=== PATIENT | female | born 1935 | race Caucasian/White ===

== ENCOUNTER 2017-01-04 07:41 | Day surgery (SDC) | payer MEDICARE, OTHER ==
[2016-12-28 11:14] LABS: APPEARANCE,URINE CLEAR; BILIRUBIN,URINE NEGATIVE (NEGATIVE); GLUCOSE, URINE NEGATIVE (NEGATIVE); KETONES,URINE NEGATIVE (NEGATIVE); LEUKOCYTE ESTERASE,URINE TRACE (NEGATIVE); NITRITE,URINE NEGATIVE (NEGATIVE); PROTEIN,URINE NEGATIVE (NEGATIVE); URINE SPECIFIC GRAVITY 1.006; UROBILINOGEN,URINE NEGATIVE mg/dL (<2.0)
[2016-12-28 11:16] LABS: HEMATOCRIT 35.8 % (36.0-47.0); HEMOGLOBIN 12.4 g/dL (12.0-15.5); HGB HCT DIFFERENCE 1.4; MEAN CORPUSCULAR HEMOGLOBIN 31.4 pg (27.0-33.4); MEAN CORPUSCULAR HGB CONC 34.5 g/dL (32.0-36.0); MEAN CORPUSCULAR VOLUME 91 fl (80-97); RED BLOOD COUNT 3.94 10^6/uL (3.72-5.28); RED CELL DISTRIBUTION WIDTH 14.4 % (11.5-14.0); WHITE BLOOD COUNT 5.5 10^3/uL (4.0-10.5)
--- NOTE | 2016-12-28 11:24 | RADIOLOGY REPORT (SQ) ---
EXAM DESCRIPTION: CHEST PA/LATERAL COMPLETED DATE/TIME: 12/28/2016 11:17 am REASON FOR STUDY: PRE OP COMPARISON: AP chest 05/29/2014, 06/15/2012 EXAM PARAMETERS: NUMBER OF VIEWS: two views TECHNIQUE: Digital Frontal and Lateral radiographic views of the chest acquired. RADIATION DOSE: NA LIMITATIONS: none FINDINGS: LUNGS AND PLEURA: No opacities, masses or pneumothorax. No pleural effusion. MEDIASTINUM AND HILAR STRUCTURES: No masses or contour abnormalities. HEART AND VASCULAR STRUCTURES: Heart normal size. No evidence for failure. BONES: No acute findings. HARDWARE: None in the chest. OTHER: No other significant finding. IMPRESSION: NO SIGNIFICANT RADIOGRAPHIC FINDING IN THE CHEST. TECHNICAL DOCUMENTATION: JOB ID: [id number] [employer]- All Rights Reserved
[2016-12-28 11:40] LABS: ANION GAP 13 (5-19); BLOOD UREA NITROGEN 19 mg/dL (7-20); CALCIUM 10.7 mg/dL (8.4-10.2); CARBON DIOXIDE 25 mmol/L (22-30); CHLORIDE 99 mmol/L (98-107); CREATININE RESULT 1.17 mg/dL (0.52-1.25); GLUCOSE 90 mg/dL (75-110); POTASSIUM 4.7 mmol/L (3.6-5.0); SODIUM 136.9 mmol/L (137-145)
--- NOTE | 2016-12-28 13:42 | EKG REPORT ---
SEVERITY:- OTHERWISE NORMAL ECG - SINUS BRADYCARDIA : Confirmed by: Roverto Kumar MD 28-Dec-2016 13:41:37
[~2017-01-04 07:41] MED LIST: BUPIVACAINE HCL 0.5%-EPI 1:200000 INJ/PF 30 ML VIAL ONE; CLINDAMYCIN 600 MG/D5W RTU 600 MG/50 ML RTUPB IV PRN; CLINDAMYCIN PHOSPHATE INJ 300 MG/2 ML SDV IV PRN; LACTATED RINGERS 1000 ML IV PRN; LIDOCAINE 0.5% INJ-PF (5 MG/ML) 50 ML SDV SUBCUT PRN
[2017-01-04 08:24] LABS: SODIUM 137.7 mmol/L (137-145)
[2017-01-04 08:27] LABS: PROTHROMBIN TIME 12.9 SEC (11.4-15.4)
[2017-01-04 08:28] LABS: PARTIAL THROMBOPLASTIN TIME 29.2 SEC (23.5-35.8)
[2017-01-04] MEDS ORDERED: FENTANYL CITRATE INJ/PF 100 MCG/2 ML AMPUL ONE (09:25)
[2017-01-04] MEDS ORDERED: MIDAZOLAM 2 MG/2 ML INJ ONE (09:25)
[2017-01-04] MEDS ORDERED: KETAMINE HCL INJ 500 MG/10 ML VIAL ONE (09:25)
[2017-01-04] MEDS ORDERED: PROPOFOL INJ 200 MG/20 ML VIAL IV ONE (09:25)
[2017-01-04] MEDS ORDERED: LIDOCAINE 2% INJ-PF (20 MG/ML) 10 ML AMPUL ONE (09:26)
[2017-01-04] MEDS ORDERED: MEPERIDINE HCL/PF INJ 25 MG/1 ML DISP.SYRIN IV PRN (10:04)
[2017-01-04] MEDS ORDERED: DIPHENHYDRAMINE HCL 50 MG/ML VIAL IV PRN (10:04)
[2017-01-04] MEDS ORDERED: FENTANYL CITRATE INJ/PF 100 MCG/2 ML AMPUL IV PRN ×3 (10:04)
[2017-01-04] MEDS ORDERED: PROMETHAZINE HCL INJ 25 MG/1 ML VIAL IV PRN ×2 (10:04)
[2017-01-04] MEDS ORDERED: ONDANSETRON HCL INJ/PF 4 MG/2 ML SDV IV PRN (10:04)
--- NOTE | 2017-01-04 10:45 | Operative Report ---
Operative Report DATE OF SURGERY: 01/04/17 PREOPERATIVE DIAGNOSIS: Prominent hardware status post open reduction internal fixation of a left ankle fracture OPERATION: Hardware removal, screw 2 SURGEON: SANIA COCHRAN FELT CUTTER: DIOR RIVERS ANESTHESIA: LMAC TISSUE REMOVED OR ALTERED: Screws 2 ESTIMATED BLOOD LOSS: Minimal PROCEDURE: The patient supine on the operating table left lower extremities prepped and draped sterile fashion. The skin overlying the previous lateral vision is insufflated with accommodation Marcaine, Xylocaine, and epinephrine. Subsequently 1 inch longitudinal incision was made over the palpable screw head. The underlying screws removed uneventfully. This is a syndesmosis screw there is a second syndesmosis screw in place and I elected to remove this at the same time to allow better distal tib-fib motion. A second screw was removed without any complications. The wound is irrigated. Is reapproximated with interrupted nylon. A sterile dressing was applied. The patient was returned to the PACU in satisfactory condition.
[2017-01-04] MEDS ORDERED: ONDANSETRON 4 MG TAB.RAPDIS SL PRN (11:45)
[2017-01-04] MEDS ORDERED: OXYCODONE HCL IR 5 MG TABLET PO PRN (11:45)
[2017-01-04] MEDS ORDERED: GLYCOPYRROLATE INJ 0.4 MG/2 ML VIAL ONE (12:05)
[2017-01-04 13:02] VITALS: BP 146/78
--- NOTE | 2017-01-04 16:05 | RADIOLOGY REPORT (SQ) ---
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 FLUOROSCOPY TIME: 0.1 minutes 2 images saved to PACS. TECHNIQUE: Intra-operative images acquired during surgical procedure to evaluate progress. NUMBER OF IMAGES: 2 LIMITATIONS: None. FINDINGS: Plate and screw fixation of fibular fracture. Screw fixation medial malleolar fracture. Alignment is anatomic. IMPRESSION: IMAGE(S) OBTAINED DURING PROCEDURE. COMMENT: Quality ID [id number]: Final reports for procedures using fluoroscopy that document radiation exp osure indices, or exposure time and number of fluorographic images (if radiation exposure indices are not available) Please consult full operative report of the attending physician for description of the procedure. TECHNICAL DOCUMENTATION: JOB ID: [id number] [employer]- All Rights Reserved
--- NOTE | 2017-01-04 16:05 | RADIOLOGY REPORT (SQ) ---
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 FLUOROSCOPY TIME: 0.1 minutes 2 images saved to PACS. TECHNIQUE: Intra-operative images acquired during surgical procedure to evaluate progress. NUMBER OF IMAGES: 2 LIMITATIONS: None. FINDINGS: Plate and screw fixation of fibular fracture. Screw fixation medial malleolar fracture. Alignment is anatomic. IMPRESSION: IMAGE(S) OBTAINED DURING PROCEDURE. COMMENT: Quality ID [id number]: Final reports for procedures using fluoroscopy that document radiation exp osure indices, or exposure time and number of fluorographic images (if radiation exposure indices are not available) Please consult full operative report of the attending physician for description of the procedure. TECHNICAL DOCUMENTATION: JOB ID: [id number] [employer]- All Rights Reserved
== END 2017-01-04 13:00 | disposition home or self-care (01) ==
LOC: OROUT 07:41
PROVIDERS: ATTEND Orthopaedic Surgery
PROC: 0SPG04Z Removal of Internal Fixation Device from Left Ankle Joint, Open Approach (ICD-10-PCS; principal; 2017-01-04 09:30)
DX: Z47.2 Encounter for removal of internal fixation device (principal); S82.842S Displaced bimalleolar fracture of left lower leg, sequela; X58.XXXS Exposure to other specified factors, sequela; I10 Essential (primary) hypertension; Z79.899 Other long term (current) drug therapy; Z79.01 Long term (current) use of anticoagulants; I25.2 Old myocardial infarction; Z88.0 Allergy status to penicillin; Z88.5 Allergy status to narcotic agent; Z79.02 Long term (current) use of antithrombotics/antiplatelets
CPT/HCPCS: 93005; 36415 ×2; 84132; 84295; 85027; 85610; 85730; 80048; 81001; 73600; 71020; 93010; 20680; J2250; J3490 ×2; J3010; J2704; 01480

== ENCOUNTER 2017-04-07 05:52 | Emergency (ER) | payer MEDICARE, OTHER ==
[2017-04-07] MEDS ORDERED: NORMAL SALINE 1000 ML 1,000 ML IV ONE (06:20)
[2017-04-07 06:35] LABS: ABSOLUTE LYMPHOCYTES (AUTO) 0.9 10^3/uL (0.5-4.7); ABSOLUTE MONOCYTES (AUTO) 0.9 10^3/uL (0.1-1.4); ABSOLUTE NEUT (AUTO) 10.3 10^3/uL (1.7-8.2); BASOPHILS % (AUTO) 0.2 % (0-2); EOSINOPHILS % (AUTO) 0.3 % (0-6); HEMATOCRIT 38.1 % (36.0-47.0); HEMOGLOBIN 12.9 g/dL (12.0-15.5); HGB HCT DIFFERENCE 0.6; LYMPHOCYTES % (AUTO) 7.5 % (13-45); MEAN CORPUSCULAR HEMOGLOBIN 30.7 pg (27.0-33.4); MEAN CORPUSCULAR HGB CONC 33.8 g/dL (32.0-36.0); MEAN CORPUSCULAR VOLUME 91 fl (80-97); MONOCYTES % (AUTO) 7.5 % (3-13); RED BLOOD COUNT 4.19 10^6/uL (3.72-5.28); RED CELL DISTRIBUTION WIDTH 14.1 % (11.5-14.0); SEGMENTED NEUTROPHILS % (AUTO) 84.5 % (42-78); WHITE BLOOD COUNT 12.2 10^3/uL (4.0-10.5)
--- NOTE | 2017-04-07 06:40 | ER Document Report ---
ED General - General Chief Complaint: Rectal Bleeding Stated Complaint: POSSIBLE RECTAL BLEEDING Time Seen by Provider: 04/07/17 06:06 TRAVEL OUTSIDE OF THE [place] IN LAST 30 DAYS: No - HPI Patient complains to provider of: Syncope GI bleed Notes: Patient coming in for evaluation of syncope in the GI bleed. Patient states earlier tonight she started having bright red blood per rectum around 2:00. Patient states she is currently on Plavix for a cardiac stent. Patient states she has had multiple bouts of watery stool with bright red blood and blood clots. Patient states normally has a little bit of abdominal pain before the stool. Patient states that when she was trying to go to the bathroom tonight she did have a syncopal episode unknown about any other trauma. Patient otherwise not, have any other complaints. Patient states past medical is positive for hypertension creatinine disease. States colonoscopy approximately 3 years ago with only hemorrhoids found. Patient otherwise is resting comfortably upon my evaluation. Patient denies any symptoms prior to syncopal episode denies chest pain abdominal pain nausea vomiting fevers chills diarrhea. Denies any recent antibiotic use. - Related Data Allergies/Adverse Reactions: Penicillins Allergy (Severe, Verified 12/28/16 09:54) codeine [Codeine] Allergy (Mild, Verified 12/28/16 09:54) Nausea Past Medical History - Social History Smoking Status: Never Smoker Chew tobacco use (# tins/day): No Frequency of alcohol use: None Drug Abuse: None Family History: Other - Negative for premature coronary artery disease Patient has suicidal ideation: No Patient has homicidal ideation: No - Past Medical History Cardiac Medical History: Reports: Hx Coronary Artery Disease, Hx Heart Attack, Hx Hypercholesterolemia, Hx Hypertension Pulmonary Medical History: Denies: Hx Asthma, Hx Bronchitis, Hx COPD, Hx Pneumonia Neurological Medical History: Denies: Hx Cerebrovascular Accident, Hx Seizures Renal/ Medical History: Denies: Hx Peritoneal Dialysis Malignancy Medical History: Reports: Hx Skin Cancer GI Medical History: Reports: Hx Gastroesophageal Reflux Disease, Hx Hiatal Hernia Musculoskeltal Medical History: Reports Hx Arthritis Past Surgical History: Reports: Hx Breast Surgery - lumps removed, Hx Cardiac Catheterization, Hx Coronary Stent, Hx Vascular Surgery - stint placement. Denies: Hx Pacemaker - Immunizations Immunizations up to date: Yes Hx Diphtheria, Pertussis, Tetanus Vaccination: Yes Hx Pneumococcal Vaccination: 05/15/14 Review of Systems - Review of Systems Constitutional: No symptoms reported EENT: No symptoms reported Cardiovascular: Syncope Respiratory: No symptoms reported Gastrointestinal: Abdominal pain, Rectal bleeding Genitourinary: No symptoms reported Female Genitourinary: No symptoms reported Musculoskeletal: No symptoms reported Skin: No symptoms reported Hematologic/Lymphatic: No symptoms reported Neurological/Psychological: No symptoms reported -: Yes All other systems reviewed and negative Physical Exam - Vital signs Vitals: Resp Pulse Ox 14 97 04/07/17 06:03 04/07/17 06:03 Interpretation: Normal - General General appearance: Appears well, Alert - HEENT Head: Normocephalic, Atraumatic Eyes: Normal Pupils: PERRL - Respiratory Respiratory status: No respiratory distress Chest status: Nontender Breath sounds: Normal Chest palpation: Normal - Cardiovascular Rhythm: Regular Heart sounds: Normal auscultation Murmur: No - Abdominal Inspection: Normal Distension: No distension Bowel sounds: Normal Tenderness: Nontender Organomegaly: No organomegaly - Rectal Stool: Heme positive, Other - Bright red blood with small clots Hemorrhoids: External - Back Back: Normal, Nontender - Extremities General upper extremity: Normal inspection, Nontender, Normal color, Normal ROM , Normal temperature General lower extremity: Normal inspection, Nontender, Normal color, Normal ROM , Normal temperature, Normal weight bearing. No: Aleah's sign - Neurological Neuro grossly intact: Yes Cognition: Normal Orientation: AAOx4 Carrie Coma Scale Eye Opening: Spontaneous [place] Coma Scale Verbal: Oriented [place] Coma Scale Motor: Obeys Commands [place] Coma Scale Total: 15 Speech: Normal Motor strength normal: LUE, RUE, LLE, RLE Sensory: Normal - Psychological Associated symptoms: Normal affect, Normal mood - Skin Skin Temperature: Warm Skin Moisture: Dry Skin Color: Normal Course - Re-evaluation Re-evalutation: 04/07/17 06:39 Patient coming in after having a syncopal episode after multiple bouts of bright red blood. Will check CBC also obtain chest x-ray CT of the head and CT of the abdomen. Otherwise patient right now has normal vital signs. We will continue to monitor. 04/07/17 09:26 Patient requested to be transferred to the [place] or the . I did discuss with the however was informed that they would not be able to accept the patient has had a lack of GI specialty. Discussed with Deniz Gaona discussed with hospitalist Dr. Mccann patient was gladly accepted. Will continue antibiotics IV fluids patient currently waiting for transfer. 04/07/17 10:59 Patient was to be stable for discharge at this time. - Vital Signs Vital signs: Temp Pulse Resp BP Pulse Ox 98.7 F 63 16 167/59 H 98 04/07/17 06:30 04/07/17 08:26 04/07/17 09:01 04/07/17 09:01 04/07/17 08:26 - Laboratory Result Diagrams: 04/07/17 10:09 04/07/17 06:10 Laboratory results interpreted by me: 04/07/17 04/07/17 04/07/17 06:10 06:10 10:09 WBC 12.2 H 12.3 H RDW 14.1 H 14.3 H Seg Neutrophils % 84.5 H Lymphocytes % 7.5 L Absolute Neutrophils 10.3 H Sodium 135.7 L Carbon Dioxide 21 L BUN 29 H Creatinine 1.53 H Est GFR ( Amer) 39 L Est GFR (Non-Af Amer) 32 L Glucose 126 H Discharge - Discharge Clinical Impression: Colitis GI bleed Qualifiers: GI bleed type/associated pathology: unspecified gastrointestinal hemorrhage type Qualified Code(s): K92.2 - Gastrointestinal hemorrhage, unspecified Syncope Qualifiers: Syncope type: unspecified Qualified Code(s): R55 - Syncope and collapse Condition: Good Disposition: [facility]
[2017-04-07 06:43] LABS: PROTHROMBIN TIME 13.1 SEC (11.4-15.4)
[2017-04-07 06:47] LABS: ALANINE AMINOTRANSFERASE 33 U/L (9-52); ALBUMIN 4.2 g/dL (3.5-5.0); ALKALINE PHOSPHATASE 93 U/L (38-126); ANION GAP 15 (5-19); ASPARTATE AMINO TRANSFERASE 24 U/L (14-36); BILIRUBIN,DIRECT 0.3 mg/dL (0.0-0.4); BLOOD UREA NITROGEN 29 mg/dL (7-20); CALCIUM 9.7 mg/dL (8.4-10.2); CARBON DIOXIDE 21 mmol/L (22-30); CHLORIDE 100 mmol/L (98-107); CREATINE KINASE 93 U/L (30-135); CREATININE RESULT 1.53 mg/dL (0.52-1.25); GLUCOSE 126 mg/dL (75-110); SODIUM 135.7 mmol/L (137-145); TOTAL PROTEIN 6.6 g/dL (6.3-8.2)
--- NOTE | 2017-04-07 06:48 | RADIOLOGY REPORT (SQ) ---
EXAM DESCRIPTION: CHEST SINGLE VIEW COMPLETED DATE/TIME: 04/07/2017 6:34 am REASON FOR STUDY: bleeding COMPARISON: 8.16.17 EXAM PARAMETERS: NUMBER OF VIEWS: One view. TECHNIQUE: Single frontal radiographic view of the chest acquired. RADIATION DOSE: NA LIMITATIONS: None. FINDINGS: LUNGS AND PLEURA: No opacities, masses or pneumothorax. No pleural effusion. MEDIASTINUM AND HILAR STRUCTURES: No masses. Contour normal. HEART AND VASCULAR STRUCTURES: Heart normal in size. Normal vasculature. BONES: No acute findings. HARDWARE: None in the chest. OTHER: No other significant finding. IMPRESSION: NO ACUTE RADIOGRAPHIC FINDING IN THE CHEST. TECHNICAL DOCUMENTATION: JOB ID: [id number] [employer]- All Rights Reserved
[2017-04-07] MEDS ORDERED: ONDANSETRON HCL INJ/PF 4 MG/2 ML SDV IV ONE (07:14)
[2017-04-07] MEDS ORDERED: PANTOPRAZOLE SODIUM 40 MG VIAL IV ONE (07:38)
--- NOTE | 2017-04-07 08:19 | RADIOLOGY REPORT (SQ) ---
EXAM DESCRIPTION: CT HEAD WITHOUT COMPLETED DATE/TIME: 04/07/2017 8:08 am REASON FOR STUDY: syncope gi bleed COMPARISON: March 2011 TECHNIQUE: Axial images acquired through the brain without intravenous contrast. Images reviewed wi th bone, brain and subdural windows. Images stored on PACS. All CT scanners at this facility use dose modulation, iterative reconstruction, and/or weight based d osing when appropriate to reduce radiation dose to as low as reasonably achievable (ALARA). [facility]: Dose Right [facility]: CareDose [facility]: Dose Right [facility]: Teradose 4D [facility]: Smart FigCard RADIATION DOSE: CT Rad equipment meets quality standard of care and radiation dose reduction techniq ues were employed. CTDIvol: 64.6 mGy. DLP: 1034 mGy-cm.mGy. LIMITATIONS: None. FINDINGS: VENTRICLES: Prominent. CEREBRUM: No masses. No hemorrhage. No midline shift. Areas of low density in the white matter mos t likely due to chronic micro-vascular ischemic change. No evidence for acute infarction. CEREBELLUM: No masses. No hemorrhage. No alteration of density. No evidence for acute infarction. EXTRAAXIAL SPACES: Age-related involutional change. No fluid collections. No masses. ORBITS AND GLOBE: No intra- or extraconal masses. Normal contour of globe without masses. CALVARIUM: No fracture. PARANASAL SINUSES: No fluid or mucosal thickening. SOFT TISSUES: No mass or hematoma. OTHER: No other significant finding. IMPRESSION: CHRONIC CHANGES OF ATROPHY AND MICROVASCULAR ISCHEMIA. NO ACUTE PROCESS. EVIDENCE OF ACUTE STROKE: NO. TECHNICAL DOCUMENTATION: JOB ID: [id number] Quality ID # [id number]: Final reports with documentation of one or more dose reduction techniques (e.g., Au tomated exposure control, adjustment of the mA and/or kV according to patient size, use of iterative reconstruction technique) 2010 [employer]- All Rights Reserved
--- NOTE | 2017-04-07 08:26 | RADIOLOGY REPORT (SQ) ---
EXAM DESCRIPTION: CT ABD/PELVIS WITH IV ONLY COMPLETED DATE/TIME: 04/07/2017 8:08 am REASON FOR STUDY: gi bleed lower abd pain COMPARISON: None. TECHNIQUE: CT scan of the abdomen and pelvis performed using helical scanning technique with dynamic intravenous contrast injection. No oral contrast. Images reviewed with lung, soft tissue, and bone windows. Reconstructed coronal and sagittal MPR images reviewed. Delayed images for evaluation of the urinary system also acquired. All images stored on PACS. All CT scanners at this facility use dose modulation, iterative reconstruction, and/or weight based d osing when appropriate to reduce radiation dose to as low as reasonably achievable (ALARA). [facility]: Dose Right [facility]: CareDose [facility]: Dose Right [facility]: Teradose 4D [facility]: [employer] CONTRAST TYPE AND DOSE: contrast/concentration: Isovue 300.00 mg/ml; Total Contrast Delivered: 81.0 ml; Total Saline Delivered: 68.0 ml RENAL FUNCTION: Creatinine 1.5 RADIATION DOSE: CT Rad equipment meets quality standard of care and radiation dose reduction techniq ues were employed. CTDIvol: 9.6 - 14.0 mGy. DLP: 1183 mGy-cm.. LIMITATIONS: None. FINDINGS: LOWER CHEST: No significant findings. No nodules or infiltrates. LIVER: Normal size. No masses. No dilated ducts. SPLEEN: Normal size. No focal lesions. PANCREAS: No masses. No significant calcifications. No adjacent inflammation or peripancreatic fluid collections. Pancreatic duct not dilated. GALLBLADDER: No identified stones by CT criteria. No inflammatory changes to suggest cholecystitis. ADRENAL GLANDS: No significant masses or asymmetry. RIGHT KIDNEY AND URETER: No solid masses. No significant calcifications. No hydronephrosis or hyd roureter. LEFT KIDNEY AND URETER: No solid masses. No significant calcifications. No hydronephrosis or hydr oureter. 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 No dissection. Renal arteries, SMA, celiac without stenosis. RETROPERITONEUM: No retroperitoneal adenopathy, hemorrhage or masses. BOWEL AND PERITONEAL CAVITY: There is diffuse thickening of the castellano of the colon extending from the level of the hepatic flexure to the level of the rectum consistent with a colitis. APPENDIX: Normal. PELVIS: No mass. No free fluid. Normal bladder. ABDOMINAL WALL: No masses. No hernias. BONES: No significant or acute findings. OTHER: No other significant finding. IMPRESSION: Diffuse thickening of the castellano of the colon extending from the level of the hepatic fle xure to the level of the rectum consistent with a colitis. Other findings as noted above TECHNICAL DOCUMENTATION: JOB ID: [id number] Quality ID # [id number]: Final reports with documentation of one or more dose reduction techniques (e.g., Au tomated exposure control, adjustment of the mA and/or kV according to patient size, use of iterative reconstruction technique) 2010 [employer]- All Rights Reserved
[2017-04-07] MEDS ORDERED: METRONIDAZOLE 500 MG/NS RTU 100 ML IV ONE (08:34)
[2017-04-07] MEDS ORDERED: CIPROFLOXACIN 400 MG/D5W RTU 400 MG/200 ML RTUPB IV SCH (09:00)
[2017-04-07 10:20] LABS: HEMATOCRIT 38.7 % (36.0-47.0); HEMOGLOBIN 13.1 g/dL (12.0-15.5); HGB HCT DIFFERENCE 0.6; MEAN CORPUSCULAR HEMOGLOBIN 30.4 pg (27.0-33.4); MEAN CORPUSCULAR HGB CONC 33.9 g/dL (32.0-36.0); MEAN CORPUSCULAR VOLUME 90 fl (80-97); RED BLOOD COUNT 4.31 10^6/uL (3.72-5.28); RED CELL DISTRIBUTION WIDTH 14.3 % (11.5-14.0); WHITE BLOOD COUNT 12.3 10^3/uL (4.0-10.5)
[2017-04-07 11:32] VITALS: BP 178/77
--- NOTE | 2017-04-07 14:40 | EKG REPORT ---
SEVERITY:- BORDERLINE ECG - SINUS RHYTHM BORDERLINE T ABNORMALITIES, ANT-LAT LEADS : Confirmed by: Betsy Fried MD 07-Apr-2017 14:39:19
== END 2017-04-07 11:10 | disposition short-term general hospital (02) ==
LOC: ER 05:52
DX: K92.2 Gastrointestinal hemorrhage, unspecified (principal); K52.9 Noninfective gastroenteritis and colitis, unspecified; R55 Syncope and collapse; Z79.02 Long term (current) use of antithrombotics/antiplatelets
CPT/HCPCS: 93005; 99285; 96361; 96375; 96365; 96368; 86900; 86901; 36415; 87040; 87045; 87205; 86850; 82550; 85025; 85027; 85610; 85730; 82272; 80053; 84484; 87493; 71010; 70450; 74177; 93010; C9113; J2405; J7030; J0744; S0164

== ENCOUNTER → 2017-07-17 | Outpatient (CLI) | payer MEDICARE, OTHER ==
[2017-07-17 15:03] LABS: ANION GAP 10 (5-19); BLOOD UREA NITROGEN 24 mg/dL (7-20); CARBON DIOXIDE 25 mmol/L (22-30); CHLORIDE 103 mmol/L (98-107); GLUCOSE 137 mg/dL (75-110); POTASSIUM 4.6 mmol/L (3.6-5.0)
[2017-07-20 12:38] LABS: CREATININE URINE 77.3 mg/dL (Not Estab.); MICROALBUMIN URINE 3.8 ug/mL (Not Estab.)
== END ==
LOC: OD 14:11
PROVIDERS: ATTEND Internal Medicine Nephrology
DX: I12.9 Hypertensive chronic kidney disease with stage 1 through stage 4 chronic kidney disease, or unspecified chronic kidney disease (principal); N18.3 Chronic kidney disease, stage 3 (moderate)
CPT/HCPCS: 36415; 80048; 82043; 82570

== ENCOUNTER → 2017-11-21 | Outpatient (CLI) | payer MEDICARE, OTHER ==
[2017-11-21 10:37] LABS: ABSOLUTE EOSINOPHILS # (AUTO) 0.2 10^3/uL (0.0-0.6); ABSOLUTE LYMPHOCYTES (AUTO) 1.4 10^3/uL (0.5-4.7); ABSOLUTE MONOCYTES (AUTO) 0.6 10^3/uL (0.1-1.4); ABSOLUTE NEUT (AUTO) 2.7 10^3/uL (1.7-8.2); BASOPHILS % (AUTO) 0.7 % (0-2); EOSINOPHILS % (AUTO) 4.8 % (0-6); HEMATOCRIT 34.5 % (36.0-47.0); HEMOGLOBIN 12.3 g/dL (12.0-15.5); LYMPHOCYTES % (AUTO) 27.5 % (13-45); MEAN CORPUSCULAR HEMOGLOBIN 32.1 pg (27.0-33.4); MEAN CORPUSCULAR HGB CONC 35.5 g/dL (32.0-36.0); MEAN CORPUSCULAR VOLUME 90 fl (80-97); MONOCYTES % (AUTO) 11.4 % (3-13); PLATELET COUNT 247 10^3/uL (150-450); RED BLOOD COUNT 3.83 10^6/uL (3.72-5.28); RED CELL DISTRIBUTION WIDTH 13.4 % (11.5-14.0); SEGMENTED NEUTROPHILS % (AUTO) 55.6 % (42-78); TOTAL CELLS COUNTED % (AUTO) 100 %; WHITE BLOOD COUNT 4.9 10^3/uL (4.0-10.5)
[2017-11-21 10:48] LABS: APPEARANCE,URINE CLEAR; BILIRUBIN,URINE NEGATIVE (NEGATIVE); COLOR,URINE YELLOW; GLUCOSE, URINE NEGATIVE (NEGATIVE); KETONES,URINE NEGATIVE (NEGATIVE); LEUKOCYTE ESTERASE,URINE MODERATE (NEGATIVE); NITRITE,URINE NEGATIVE (NEGATIVE); PROTEIN,URINE NEGATIVE (NEGATIVE); UROBILINOGEN,URINE NEGATIVE mg/dL (<2.0)
[2017-11-21 11:06] LABS: ANION GAP 10 (5-19); BLOOD UREA NITROGEN 17 mg/dL (7-20); CALCIUM 9.5 mg/dL (8.4-10.2); CARBON DIOXIDE 27 mmol/L (22-30); CHLORIDE 101 mmol/L (98-107); GLUCOSE 87 mg/dL (75-110); POTASSIUM 4.6 mmol/L (3.6-5.0); SODIUM 137.7 mmol/L (137-145)
[2017-11-22 12:39] LABS: CREATININE URINE 67.5 mg/dL (Not Estab.); MICROALBUMIN URINE 3.2 ug/mL (Not Estab.)
== END ==
LOC: OD 09:57
PROVIDERS: ATTEND Internal Medicine Nephrology
DX: I12.9 Hypertensive chronic kidney disease with stage 1 through stage 4 chronic kidney disease, or unspecified chronic kidney disease (principal); N18.3 Chronic kidney disease, stage 3 (moderate)
CPT/HCPCS: 36415; 80048; 81001; 82040; 82043; 82306; 82570; 83970; 84100; 85025

== ENCOUNTER → 2018-06-07 | Outpatient (CLI) | payer MEDICARE, OTHER ==
[2018-06-07 10:53] LABS: APPEARANCE,URINE SLIGHTLY-CLOUDY; BILIRUBIN,URINE NEGATIVE (NEGATIVE); COLOR,URINE YELLOW; GLUCOSE, URINE NEGATIVE (NEGATIVE); KETONES,URINE NEGATIVE (NEGATIVE); LEUKOCYTE ESTERASE,URINE MODERATE (NEGATIVE); NITRITE,URINE NEGATIVE (NEGATIVE); PROTEIN,URINE NEGATIVE (NEGATIVE); URINE SPECIFIC GRAVITY 1.011; UROBILINOGEN,URINE NEGATIVE mg/dL (<2.0)
[2018-06-07 11:27] LABS: ANION GAP 9 (5-19); BLOOD UREA NITROGEN 22 mg/dL (7-20); CALCIUM 10.1 mg/dL (8.4-10.2); CARBON DIOXIDE 27 mmol/L (22-30); CHLORIDE 101 mmol/L (98-107); GLUCOSE 94 mg/dL (75-110); SODIUM 136.8 mmol/L (137-145)
== END ==
LOC: OD 09:28
PROVIDERS: ATTEND Internal Medicine Nephrology
DX: I12.9 Hypertensive chronic kidney disease with stage 1 through stage 4 chronic kidney disease, or unspecified chronic kidney disease (principal); N18.3 Chronic kidney disease, stage 3 (moderate)
CPT/HCPCS: 36415; 80048; 81001

== ENCOUNTER → 2018-11-20 | Outpatient (CLI) | payer MEDICARE, OTHER ==
[2018-11-20 11:21] LABS: ABSOLUTE EOSINOPHILS # (AUTO) 0.2 10^3/uL (0.0-0.6); ABSOLUTE LYMPHOCYTES (AUTO) 1.5 10^3/uL (0.5-4.7); ABSOLUTE MONOCYTES (AUTO) 0.6 10^3/uL (0.1-1.4); ABSOLUTE NEUT (AUTO) 2.9 10^3/uL (1.7-8.2); BASOPHILS % (AUTO) 0.7 % (0-2); EOSINOPHILS % (AUTO) 3.6 % (0-6); HEMATOCRIT 34.9 % (36.0-47.0); LYMPHOCYTES % (AUTO) 28.5 % (13-45); MEAN CORPUSCULAR HEMOGLOBIN 30.9 pg (27.0-33.4); MEAN CORPUSCULAR HGB CONC 34.4 g/dL (32.0-36.0); MEAN CORPUSCULAR VOLUME 90 fl (80-97); MONOCYTES % (AUTO) 12.3 % (3-13); PLATELET COUNT 275 10^3/uL (150-450); RED BLOOD COUNT 3.88 10^6/uL (3.72-5.28); RED CELL DISTRIBUTION WIDTH 13.6 % (11.5-14.0); SEGMENTED NEUTROPHILS % (AUTO) 54.9 % (42-78); TOTAL CELLS COUNTED % (AUTO) 100 %; WHITE BLOOD COUNT 5.2 10^3/uL (4.0-10.5)
[2018-11-20 11:42] LABS: ALBUMIN 4.1 g/dL (3.5-5.0); ANION GAP 9 (5-19); BLOOD UREA NITROGEN 20 mg/dL (7-20); CALCIUM 9.5 mg/dL (8.4-10.2); CARBON DIOXIDE 27 mmol/L (22-30); CHLORIDE 99 mmol/L (98-107); GLUCOSE 89 mg/dL (75-110); PHOSPHORUS 4.3 mg/dL (2.5-4.5); POTASSIUM 4.9 mmol/L (3.6-5.0); SODIUM 134.6 mmol/L (137-145)
[2018-11-20 12:09] LABS: APPEARANCE,URINE CLEAR; BILIRUBIN,URINE NEGATIVE (NEGATIVE); COLOR,URINE STRAW; GLUCOSE, URINE NEGATIVE (NEGATIVE); KETONES,URINE NEGATIVE (NEGATIVE); LEUKOCYTE ESTERASE,URINE LARGE (NEGATIVE); NITRITE,URINE NEGATIVE (NEGATIVE); PROTEIN,URINE NEGATIVE (NEGATIVE); URINE SPECIFIC GRAVITY 1.008; UROBILINOGEN,URINE NEGATIVE mg/dL (<2.0)
[2018-11-21 10:37] LABS: CREATININE URINE 46.5 mg/dL (Not Estab.); MICROALBUMIN URINE <3.0 ug/mL (Not Estab.)
== END ==
LOC: OD 10:31
PROVIDERS: ATTEND Internal Medicine Nephrology
DX: I12.9 Hypertensive chronic kidney disease with stage 1 through stage 4 chronic kidney disease, or unspecified chronic kidney disease (principal); N18.3 Chronic kidney disease, stage 3 (moderate)
CPT/HCPCS: 36415; 80069; 81001; 82043; 82306; 82570; 83970; 85025

== ENCOUNTER → 2020-03-26 | Outpatient (CLI) | payer MEDICARE, OTHER ==
[2020-03-26 08:47] LABS: APPEARANCE,URINE CLEAR; BILIRUBIN,URINE NEGATIVE (NEGATIVE); COLOR,URINE STRAW; GLUCOSE, URINE NEGATIVE (NEGATIVE); KETONES,URINE NEGATIVE (NEGATIVE); LEUKOCYTE ESTERASE,URINE NEGATIVE (NEGATIVE); NITRITE,URINE NEGATIVE (NEGATIVE); PROTEIN,URINE NEGATIVE (NEGATIVE); URINE SPECIFIC GRAVITY 1.004; UROBILINOGEN,URINE NEGATIVE mg/dL (<2.0)
[2020-03-26 08:53] LABS: ALBUMIN 4.1 g/dL (3.5-5.0); ANION GAP 10 (5-19); BLOOD UREA NITROGEN 15 mg/dL (7-20); CALCIUM 10.1 mg/dL (8.4-10.2); CARBON DIOXIDE 24 mmol/L (22-30); CHLORIDE 102 mmol/L (98-107); GLUCOSE 95 mg/dL (75-110); PHOSPHORUS 3.4 mg/dL (2.5-4.5)
[2020-03-26 09:06] LABS: ABSOLUTE EOSINOPHILS # (AUTO) 0.2 10^3/uL (0.0-0.6); ABSOLUTE LYMPHOCYTES (AUTO) 1.6 10^3/uL (0.5-4.7); ABSOLUTE MONOCYTES (AUTO) 0.5 10^3/uL (0.1-1.4); ABSOLUTE NEUT (AUTO) 2.4 10^3/uL (1.7-8.2); BASOPHILS % (AUTO) 0.6 % (0-2); EOSINOPHILS % (AUTO) 3.9 % (0-6); HEMATOCRIT 33.9 % (36.0-47.0); HEMOGLOBIN 11.9 g/dL (12.0-15.5); MEAN CORPUSCULAR VOLUME 91 fl (80-97); MONOCYTES % (AUTO) 11.5 % (3-13); PLATELET COUNT 266 10^3/uL (150-450); RED BLOOD COUNT 3.71 10^6/uL (3.72-5.28); RED CELL DISTRIBUTION WIDTH 13.8 % (11.5-14.0); TOTAL CELLS COUNTED % (AUTO) 100 %; WHITE BLOOD COUNT 4.8 10^3/uL (4.0-10.5)
[2020-03-27 10:37] LABS: CREATININE URINE 23.5 mg/dL (Not Estab.)
[2020-03-27 10:39] LABS: MICROALBUMIN URINE <3.0 ug/mL (Not Estab.)
--- OUTSIDE RECORDS SUMMARY | 2020-03-27 15:00 | XMS REPORT ---
:1935 Author Organization [facility] Address [facility] [place] [address] [place] [id number] Care Team Providers Name Role Phone Esteban River MD Attending Clinician Unavailable Simone Velasquez MD Attending Clinician Unavailable Allergies, Adverse Reactions, Alerts Allergy Name Allergy Status Severity Reaction(s) Onset Inactive Treat ing Comments Type Date Date Clinician Codeine Allergy to Active substance Penicillins Allergy to Active substance Codeine Codeine Active Derivatives Derivatives Penicillins Penicillins Active Medications Ordered Filled Start Stop Current Ordering Indication Dosage Frequency Signature Comments Components Medication Medication Date Date Medication? Clinician (SIG) Name Name Mucinex DM 2019-0 Yes Mucinex DM Maximum 1-24 Maximum Strength 00:00: Strength 60-1200 MG 00 60-1200 MG Oral Tablet Oral Extended Tablet Release 12 Extended Hour Release 12 Hour Quantity: 28 Refills: 0 Start : 0Active Doxycycline 2019-0 Yes Doxycyclin Hyclate 100 1-24 e Hyclate MG Oral 00:00: 100 MG Tablet 00 Oral Tablet Quantity: 14 Refills: 0 Start : 0Active AYR Saline 2019-0 Yes AYR Saline Nasal Rinse 1-24 Nasal 1.57 GM 00:00: Rinse 1.57 Nasal 00 GM Nasal Packet Packet Quantity: 50 Refills: 0 Start : 0Active Telmisartan 2019-0 Yes Telmisarta 80 MG Oral 1-24 n 80 MG Tablet 00:00: Oral 00 Tablet Quantity: 90 Refills: 0 Start : 0Active Aspirin Low 2020-0 Yes Aspirin Dose 81 MG 1-24 Low Dose Oral Tablet 00:00: 81 MG Oral Delayed 00 Tablet Release Delayed Release Quantity: 90 Refills: 0 Start : 0Active Proctozone- 2019-0 Yes Proctozone HC 2.5 % 1-24 -HC 2.5 % CREA 00:00: CREA 00 Quantity: 30 Refills: 0 Start : 0Active Isosorbide 2020- Yes Simone .5 QD Isosorbide Mononitrate 1-08 Ron Mononiellent ER 30 MG 00:00: MD shelby ER 30 MG Oral Tablet 00 Oral Extended Tablet Release 24 Extended Hour Release 24 Hour TAKE 0.5 TABLET DAILY Quantity: 23 Refills: 5 Simone Velasquez MD Start : 22-May-2019 Active FeroSul 325 2018- Yes FeroSul (65 Fe) MG 2-19 325 (65 Oral Tablet 00:00: Fe) MG 00 Oral Tablet Quantity: 100 Refills: 0 Start : 9Active Cetirizine 2018-05 Yes Cetirizine HCl - 10 MG 0-16 HCl - 10 Oral Tablet 00:00: MG Oral 00 Tablet Quantity: 90 Refills: 0 Start : 9Active Naproxen Yes Naproxen 375 MG Oral 9-18 375 MG Tablet 00:00: Oral 00 Tablet Quantity: 60 Refills: 0 Start : 9Active Fish Oil Yes Fish Oil 1000 MG 8-30 1000 MG Oral 00:00: Oral Capsule 00 Capsule Quantity: 180 Refills: 0 Start : 9Active Nitroglycer Yes Nitroglyce in 0.4 8-30 rin 0.4 MG/SPRAY 00:00: MG/SPRAY Translingua 00 Translingu l Solution al Solution Quantity: 4 Refills: 0 Start : 9Active Meloxicam Yes Meloxicam 7.5 MG Oral 8-15 7.5 MG Tablet 00:00: Oral 00 Tablet Quantity: 30 Refills: 0 Start : 9Active Ranexa 500 Yes Ranexa 500 MG Oral 6-14 MG Oral Tablet 00:00: Tablet Extended 00 Extended Release 12 Release 12 Hour Hour Quantity: 180 Refills: 0 Start : 9Active Carvedilol Yes Carvedilol 6.25 MG 3-20 6.25 MG Oral Tablet 00:00: Oral 00 Tablet Quantity: 180 Refills: 0 Start : 9Active Vitamin 2019- Yes Vitamin B-12 1000 3-20 B-12 1000 MCG Oral 00:00: MCG Oral Tablet 00 Tablet Quantity: 90 Refills: 0 Start : 9Active Multi-Vitam 0 Yes Multi-Nicky ins TABS 3-20 mins TABS 00:00: Quantity: 00 100 Refills: 0 Start : 9Active NIFEdipine 0 Yes NIFEdipine ER 30 MG 3-20 ER 30 MG Oral Tablet 00:00: Oral Extended 00 Tablet Release 24 Extended Hour Release 24 Hour Quantity: 90 Refills: 0 Start : 9Active Acetaminoph Yes Acetaminop en CAPS hen CAPS 1 tab po every day Refills: 0 Active Zolpidem Yes Zolpidem Tartrate 10 Tartrate MG Oral 10 MG Oral Tablet Tablet TAKE 1/2 to ONE TABLET, NEEDED, AT BEDTIME. Quantity: 30 Refills: 4 Active Melatonin 3 Yes Melatonin MG Oral 3 MG Oral Tablet Tablet TAKE DIRECTED. Refills: 0 Active Calcium Yes Calcium 500/D 500/D 500-200 500-200 MG-UNIT MG-UNIT Oral Tablet Oral Tablet 1 tab po twice a day Refills: 0 Active MiraLax 17 Yes MiraLax 17 GM/SCOOP GM/SCOOP Oral Powder Oral Powder 1 capful 17gm po qd Quantity: 1 Refills: 1 Active 510 GM Bottle Refresh Yes Refresh Tears 0.5 % Tears 0.5 Ophthalmic % Solution Ophthalmic Solution Refills: 0 Active Aquaphil Yes Aquaphil Base OINT Base OINT USE DIRECTED. Refills: 0 Active PriLOSEC 40 Yes PriLOSEC MG CPDR 40 MG CPDR Refills: 0 Active Cyclobenzap Yes Cyclobenza rine HCl - veda HCl 10 MG Oral - 10 MG Tablet Oral Tablet Refills: 0 Active traMADol Yes traMADol HCl - 50 MG HCl - 50 Oral Tablet MG Oral Tablet Refills: 0 Active acetaminoph No acetaminop en 120 hen 120 mg-codeine mg-codeine 12 mg/5 mL 12 mg/5 mL oral oral solution solution Pravastatin Yes Pravastati Sodium 10 n Sodium MG Oral 10 MG Oral Tablet Tablet Refills: 0 Active Pantoprazol Yes Pantoprazo e Sodium 40 le Sodium MG Oral 40 MG Oral Tablet Tablet Delayed Delayed Release Release Refills: 0 Active Hyzaar TABS Yes Hyzaar TABS Refills: 0 Active Plavix 75 Yes Plavix 75 MG Oral MG Oral Tablet Tablet Refills: 0 Active Metoprolol Yes Metoprolol Tartrate Tartrate TABS TABS Refills: 0 Active acetaminoph No acetaminop en 325 mg hen 325 mg tablet tablet aspirin 81 No aspirin 81 mg mg tablet,vincent tablet,del yed release ayed release atorvastati No atorvastat n 80 mg in 80 mg tablet tablet clopidogrel No clopidogre 75 mg l 75 mg tablet tablet Coreg CR 10 No Coreg CR mg capsule, 10 mg extended capsule, release extended release melatonin 3 No melatonin mg tablet 3 mg tablet Micardis 40 No Micardis mg tablet 40 mg tablet Micardis No Micardis HCT 80 HCT 80 mg-25 mg mg-25 mg tablet tablet Mobic 7.5 No 1 Q1D Mobic 7.5 mg tablet mg tablet Take 1 Take 1 tablet tablet every day every day by oral by oral route. route. nitroglycer No nitroglyce in 0.4 mg rin 0.4 mg sublingual sublingual tablet tablet PLACE [address] 1 TABLET (0.4 TABLET MG) BY (0.4 MG) SUBLINGUAL BY ROUTE EVERY SUBLINGUAL 5 MINUTES ROUTE EVERY 5 NEEDEDFOR MINUTES CHEST PAIN. NEEDEDFOR DO NOT CHEST EXCEED 3 PAIN. DO DOSES IN 15 NOT EXCEED MINUTES. 3 DOSES IN 15 MINUTES. omeprazole No omeprazole 40 mg 40 mg capsule,del capsule,de ayed layed release release Oyster No Oyster Shell Shell Calcium-Vit Calcium-Vi nunez D3 500 tamin D3 mg (1,250 500 mg mg)-200 (1,250 unit tablet mg)-200 unit tablet phenazopyri No phenazopyr dine 100 mg idine 100 tablet mg tablet Ranexa 500 No Ranexa 500 mg mg tablet,exte tablet,ext nded ended release release Vitamin No Vitamin B-12 1,000 B-12 1,000 mcg tablet mcg tablet meloxicam No meloxicam 7.5 mg 7.5 mg tablet Take tablet 1 tablet Take 1 every day tablet by oral every day route. by oral route. naproxen No 1 BID naproxen 375 mg 375 mg tablet Take tablet 1 tablet Take 1 twice a day tablet by oral twice a route for day by 30 days. oral route for 30 days. nifedipine No nifedipine ER 30 mg ER 30 mg tablet,exte tablet,ext nded ended release release nitroglycer No nitroglyce in 400 rin 400 mcg/spray mcg/spray translingua translingu l al Refresh No Refresh Tears 0.5 % Tears 0.5 eye drops % eye drops telmisartan No telmisarta 80 mg n 80 mg tablet tablet Micardis Yes 1 QD Micardis HCT 80-25 HCT 80-25 MG Oral MG Oral Tablet Tablet TAKE 1 TABLET DAILY. Refills: 0 Active Coreg 3.125 Yes Q0.5D Coreg MG Oral 3.125 MG Tablet Oral Tablet TAKE 1 TABLET TWICE DAILY WITH MEALS. Quantity: 60 Refills: 3 Active Aspirin 325 Yes 1 QD Aspirin MG Oral 325 MG Tablet Oral Tablet TAKE 1 TABLET DAILY Quantity: 90 Refills: 3 Active Plavix 75 Yes 1 QD Plavix 75 MG Oral MG Oral Tablet Tablet TAKE 1 TABLET DAILY Quantity: 30 Refills: 5 Active Lipitor 80 Yes 1 Lipitor 80 MG Oral MG Oral Tablet Tablet TAKE 1 TABLET AT BEDTIME. Quantity: 30 Refills: 3 Active Fish Oil Yes Fish Oil 1200 MG 1200 MG Oral Oral Capsule Capsule TAKE DIRECTED. Refills: 0 Active Problems Condition Condition Condition Status Onset Resolution Last Treatin g Comments Name Details Category Date Date Treatment Clinician Date Pain of Pain of Problem Active left ankle Left Ankle 9-18 joint Joint 00:00: 00 Hypercholes Hypercholes Problem Active terolemia terolemia 12-27 00:00: 00 Gastroesoph Gastroesoph Problem Active ageal ageal 12-27 reflux Reflux 00:00: disease Disease 00 Myocardial Myocardial Problem Active infarction Infarction 12-13 00:00: 00 Heart Heart Problem Active disease Disease 12-13 00:00: 00 Urinary Urinary Problem Active frequency frequency Weak Weak Problem Active urinary urinary stream stream Dyspnea Dyspnea Problem Active 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 Abnormal Abnormal Problem Active EKG EKG Essential Essential Problem Active hypertensio hypertensio n n 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 Palpitations Active Essential hypertension Active Abnormal EKG Active Mixed hyperlipidemia Active Stage 3 chronic kidney disease Active Ankle pain Active 2019-01-30 15:04:15 Pain of left ankle joint Active 2018-12-27 14:20:22 Encounters Start End Encounter Admission Attending Care Care Encounter Date/Time Date/Time Type Type Clinicians Facility Department ID 2020-01-06 2020-01-06 [facility] [id number] 13:45:00 17:45:03 t; Esteban Barba MD 2019-12-26 2019-12-26 [facility] [id number] 13:10:00 13:10:00 t; BRENNAN ahmadi, Clinical WB 2019-12-06 2019-12-06 Yas [place] [facility] [id number] 09:00:00 09:00:00 t; Esteban Barba MD 2019-06-27 2019[facility]06-[id number] 14:00:00 14:00:00 t; Simone Guido MD 2019-05-22 2019-05-22 [facility] [id number] 14:45:00 14:45:00 t; Simone Guido MD 2019-04-08 2019-04-08 Yas [facility] [id number] 12:15:00 12:15:00 t; ELEN [place], Nuclear 3 2019-04-03 2019-04-03 JOVANY DelgadoALEAH [facility] [id number] 11:15:00 11:15:00 t; Simone Guido MD 2019-04-01 2019-04-01 Yas [facility] [id number] 08:10:00 08:10:00 t; BRENNAN ahmadi, Lab WB 2019-03-29 2019-03-29 [facility] [id number] 12:15:00 12:15:00 t; BRENNAN ahmadi, [facility] 2019-03-05 2019-03-05 AppointJOSELINE Mendoza [facility] [id number] 15:00:00 15:00:00 t; Simone Guido MD 2019-01-30 2019-01-30 Darvin Cisneros [id number] 00:00:00 00:00:00 [facility] [address] [facility] MD: [address] [place] [address], [address], [place] [address] , Ph. 2018-12-27 2018-12-27 Darvin Cisneros [id number] 00:00:00 00:00:00 [facility] [address] [facility] MD: [facility], [place] [address] , Ph. Family History Family Member Diagnosis Comments Start Date Stop Date Mother Family history of stroke Brother Family history of Stomach cancer Immunizations Ordered Immunization Filled Immunization Date Status Commen ts Refusal Reason Name Name Flulaval Quadrivalent 2020-01-06 Completed 0.5 ML Intramuscular 14:18:00 Suspension Prefilled Syringe influenza, 2018-02-12 Completed injectable, 00:00:00 quadrivalent Social History Smoking Status Start Date Stop Date Never smoked tobacco (finding) Vital Signs Vital Name Observation Time Observation Value Comments Height 2019-01-30 00:00:00 64 [in_i] BMI (Body Mass Index) 2019-01-30 00:00:00 29.2 kg/m2 Body Weight 2019-01-30 00:00:00 170 [lb_av] Height 2018-12-27 00:00:00 64 [in_i] BMI (Body Mass Index) 2018-12-27 00:00:00 29.2 kg/m2 Body Weight 2018-12-27 00:00:00 170 [lb_av] Systolic blood pressure 2020-01-06 13:44:00 148 mm[Hg] Loca tion: LUE; Position: Sittin g Diastolic blood pressure 2020-01-06 13:44:00 60 mm[Hg] Loc ation: LUE; Position: Sittin g Weight 2020-01-06 13:44:00 177 [lb_av] Body mass index (BMI) 2020-01-06 13:44:00 31.35 kg/m2 [Ratio] Heart Rate 2020-01-06 13:44:00 54 /min O2 SAT 2020-01-06 13:44:00 95 % Systolic blood pressure 2019-12-06 09:09:00 122 mm[Hg] Loca tion: LUE; Position: Sittin g Diastolic blood pressure 2019-12-06 09:09:00 60 mm[Hg] Loc ation: LUE; Position: Sittin g Weight 2019-12-06 09:09:00 176 [lb_av] Body mass index (BMI) 2019-12-06 09:09:00 31.18 kg/m2 [Ratio] Body height 2019-12-06 09:09:00 63 [in_us] Heart Rate 2019-12-06 09:09:00 54 /min O2 SAT 2019-12-06 09:09:00 95 % Hospital Discharge Instructions NameDatesDetailsInstructions not documentedNameDatesDetailsInstructions not documented1. Ankle pain naproxen 375 mg tablet Discussion Note: None recorded. Patient educational handouts: No information available.1. Pain of left ankle joint XR, ankle Mobic 7.5 mg tablet Discussion Note: None recorded. Patient educational handouts: No information available.
== END ==
LOC: OD 07:55
PROVIDERS: ATTEND Internal Medicine Nephrology
DX: I12.9 Hypertensive chronic kidney disease with stage 1 through stage 4 chronic kidney disease, or unspecified chronic kidney disease (principal); N18.30 Chronic kidney disease, stage 3 unspecified; E87.1 Hypo-osmolality and hyponatremia
CPT/HCPCS: 36415; 80069; 81001; 82043; 82306; 82570; 83970; 85025